=== PATIENT | male | born 1990 | race Caucasian/White ===

== ENCOUNTER 2021-04-04 00:20 | Emergency (ER) | payer BC ==
[~2021-04-04] VITALS: Ht 165.1 cm; Wt 59.0 kg
[2021-04-04 00:45] VITALS: BP 136/74
--- NOTE | 2021-04-04 00:45 | NUR ---
TO BED # 10 AMBULATORY
--- NOTE | 2021-04-04 00:50 | NUR ---
PT. IS A 30 Y/O MALE THAT CAME INTO ED WITH C/O OF RIGHT LOWER ABDOMINAL PAIN. PT. STATES THE PAIN STARTED AROUND 2130 OF LAST NIGHT. WHEN ASKED TO DESCRIBE PAIN, PT. STATES IT IS LOCALIZED RIGHT LOWER QUADRANT OF ABDOMEN WITH DULL CONSTANT PAIN. PT. RATES PAIN 7/10 ON THE PAIN SCALE AT THIS TIME. PT. ALSO STATES HAVING AN URGENCY TO URINATE WITH ONLY DRIBBLES THAT COME OUT. PMH: DENIES ALLERGIES: LEEANNA
[2021-04-04] MEDS ORDERED: NACL 0.9% 1,000 ML IV ONE (02:10)
[2021-04-04] MEDS ORDERED: ONDANSETRON 4 MG/2 ML VIAL IVP ONE (02:10)
[2021-04-04] MEDS ORDERED: MORPHINE SULFATE 4 MG/ML SYR IVP ONE (02:10)
[2021-04-04] MEDS ORDERED: MORPHINE SULFATE 4 MG/ML SYR ONE (02:27)
[2021-04-04 02:28] LABS: BASOPHILS % (AUTO) 0.1 % (0.0-2.0); HEMATOCRIT 42.6 % (36-52); HEMOGLOBIN 14.3 g/dL (12.0-18.0); LYMPHOCYTES # (AUTO) 0.9 K/uL (2.0-11.5); LYMPHOCYTES % (AUTO) 4.8 % (20.5-51.1); MEAN CORPUSCULAR HEMOGLOBIN 30 pg (27-31); MEAN CORPUSCULAR HGB CONC 34 g/dL (33-37); MEAN CORPUSCULAR VOLUME 88.6 fL (80-94); MONOCYTES % (AUTO) 5.5 % (1.7-9.3); NEUTROPHILS # (AUTO) 16.9 K/uL (1.8-7.7); NEUTROPHILS % (AUTO) 89.6 % (42.2-75.2); PLATELET COUNT (AUTO) 275 K/uL (140-450); RED CELL DISTRIBUTION WIDTH 13.8 % (11.6-13.7); WHITE BLOOD COUNT (AUTO) 18.9 K/uL (4.8-10.8)
[2021-04-04] MEDS ORDERED: ONDANSETRON 4 MG/2 ML VIAL ONE (02:28)
--- NOTE | 2021-04-04 02:40 | NUR ---
PT. UNABLE TO GIVE URINE SAMPLE, STATING "I CAN'T GO RIGHT NOW."
[2021-04-04 02:42] LABS: ALBUMIN 4.3 g/dL (3.4-5.0); ANION GAP 13.7 (8-16); CARBON DIOXIDE 27.3 mmol/L (21-32); CREATININE 1.1 mg/dL (0.6-1.3); TOTAL BILIRUBIN 0.6 mg/dL (0.0-1.0)
--- NOTE | 2021-04-04 02:50 | NUR ---
KHRIS SWAB COLLECTED AND HANDED TO IDA FROM LAB
--- NOTE | 2021-04-04 03:30 | NUR ---
PT. TAKEN TO CT VIA W/C
--- NOTE | 2021-04-04 03:44 | NUR ---
PT. BACK FROM CT VIA W/C
--- NOTE | 2021-04-04 03:46 | NUR ---
PT. AMBULATED TO BATHROOM WITH EVEN AND STEADY GAIT
[2021-04-04 03:59] LABS: APPEARANCE,URINE CLEAR (CLEAR); BILIRUBIN,URINE NEGATIVE (NEGATIVE); BLOOD, URINE 3+ (NEGATIVE); COLOR,URINE YELLOW (YELLOW); LEUKOCYTE ESTERASE ,URINE NEGATIVE (NEGATIVE); NITRITE, URINE NEGATIVE (NEGATIVE); PH,URINE 6.5 (5.0-9.0); UGLUCOSE NEGATIVE (NEGATIVE)
[2021-04-04 04:03] LABS: RBC,URINE 20-50 /HPF (0-5)
[2021-04-04 04:04] LABS: WBC,URINE 0-5 /HPF (0-5)
[2021-04-04 06:08] VITALS: BP 127/84
--- NOTE | 2021-04-04 06:08 | NUR ---
Patient discharged with v/s stable. Written and verbal after care instructions given and explained. Patient verbalized understanding. Ambulatory with steady gait. All questions addressed prior to discharge. Advised to follow up with PMD.
== END 2021-04-04 06:08 | disposition home or self-care (01) ==
LOC: MED 00:20
DX: N23 Unspecified renal colic (principal); R11.2 Nausea with vomiting, unspecified; Z87.442 Personal history of urinary calculi; Z20.822 Contact with and (suspected) exposure to COVID-19
CPT/HCPCS: 36415; 74177; 80053; 81001; 83605; 83690; 85025; 87040; 87426; 96361; 96374; 96375; 99285; J2270; J2405; J7030; Q9967